=== PATIENT | male | born 1955 | race Asian ===

== ENCOUNTER 2016-10-20 23:16 | Emergency (ER) | payer BC ==
[2016-10-21] MEDS ORDERED: NS 0.9% 1000 ML* 1,000 ML IV ONE (00:14)
[2016-10-21 00:37] LABS: Hematocrit 40 % (42-52); Hemoglobin 13.1 g/dl (14.0-18.0); Mean Corpuscular HGB Conc 32 g/dl (31-36); Mean Corpuscular Hemoglobin 27 pg (27-31); Mean Corpuscular Volume 84 fL (80-94); Mean Platelet Volume 9 um3 (7.4-10.4); Red Blood Count 4.78 10^6/ul (4.0-5.4); Red Cell Distribution Width 14 % (10.5-15); White Blood Count 8.7 10^3/ul (3.5-10.8)
[2016-10-21 00:41] LABS: Urine Bilirubin Negative (Negative); Urine Glucose Negative (Negative); Urine Nitrite Negative (Negative)
[2016-10-21 00:47] LABS: BUN/Creatinine Ratio 15.8 (8-20); C Reactive Protein 1.59 mg/L (< 5.00); Calcium 9.1 mg/dL (8.6-10.3); EGFR African American 103.3 (>60); EGFR Non-African American 80.3 (>60); Potassium 3.8 mmol/L (3.5-5.0); Total Bilirubin 0.3 mg/dL (0.2-1.0)
[2016-10-21 00:48] LABS: Troponin I 0.01 ng/mL (<0.04)
--- NOTE | 2016-10-21 01:50 | ED ---
Fritz Cam Adam, scribed for Jaren Marrufo MD on 10/20/16 at 2357 . Abdominal Pain/Male - HPI Summary HPI Summary: Pt is a 61 year old male presenting with abdominal pain that set on at 20:00 tonight, about 1 hour after the pt ate dinner. The pain is diffuse in his central abdomen and it radiates up the center of his chest to his neck. It was a 5/10 but is currently a 2-3/10. Recumbent position aggravates the pain. Pt also c/o RLQ abdominal pain that seems to be separate. He denies fever, N/V/D. He had a BM today which was normal. Several months ago he had a stomach ulcer with hematemesis and bloody stool. Since then he has been asymptomatic until tonight. He states that tonight's symptoms are different from those several months ago, but he had an episode of pain similar to the current pain a few days ago. PMHx includes ulcers, GI bleeding, and HTN. - History of Current Complaint Chief Complaint: EDAbdPain Stated Complaint: ABD PAIN Time Seen by Provider: 10/20/16 23:39 Hx Obtained From: Patient Onset/Duration: Sudden Onset, Lasting Hours, Still Present Timing: Constant Severity Initially: Moderate Severity Currently: Mild Pain Intensity: 5 Pain Scale Used: 0-10 Numeric Location: Diffuse, Discrete At: RLQ, Umbilical Radiates: Yes Radiates to: Other - Up chest to neck Aggravating Factor(s): Other: - Recumbent position Alleviating Factor(s): Spontaneous Resolution - Not completely resolved but improved Associated Signs And Symptoms: Positive: Negative - Allergies/Home Medications Allergies/Adverse Reactions: Allergies Allergy/AdvReac Type Severity Reaction Status Date / Time No Known Allergies Allergy Verified 10/20/16 23:32 PMH/Surg Hx/FS Hx/Imm Hx Cardiovascular History: Reports: Hx Hypertension - Borderline Sensory History: Reports: Hx Contacts or Glasses Opthamlomology History: Reports: Hx Contacts or Glasses - Immunization History Date of Tetanus Vaccine: unk Date of Influenza Vaccine: unk Infectious Disease History: No Infectious Disease History: Denies: Traveled Outside the [place] in Last 30 Days - Family History Known Family History: Positive: None - "Both parents are alive and healthy" - Social History Occupation: Retired Lives: With Family - Alcohol Use: None Hx Substance Use: No Substance Use Type: Reports: None Hx Tobacco Use: No Smoking Status (MU): Former Smoker Review of Systems Constitutional: Negative Negative: Fever Positive: Abdominal Pain. Negative: Vomiting, Diarrhea, Nausea All Other Systems Reviewed And Are Negative: Yes Physical Exam Triage Information Reviewed: Yes Vital Signs On Initial Exam: Initial Vitals Temp Pulse Resp BP Pulse Ox 98.0 F 69 16 171/93 98 10/20/16 23:25 10/20/16 23:25 10/20/16 23:25 10/20/16 23:25 10/20/16 23:25 Vital Signs Reviewed: Yes Appearance: Positive: Well-Appearing, No Pain Distress Skin: Positive: Warm, Skin Color Reflects Adequate Perfusion, Dry Head/Face: Positive: Normal Head/Face Inspection Eyes: Positive: EOMI, JENNIFER ENT: Positive: Normal ENT inspection Neck: Positive: Supple, Nontender Respiratory/Lung Sounds: Positive: Clear to Auscultation, Breath Sounds Present Cardiovascular: Positive: RRR Abdomen Description: Positive: Nontender, Soft Bowel Sounds: Positive: Present Musculoskeletal: Positive: Normal, Strength/ROM Intact Neurological: Positive: Normal, Sensory/Motor Intact, Alert, Oriented to Person Place, Time Psychiatric: Positive: Affect/Mood Appropriate - Nika Coma Scale Coma Scale Total: 15 Diagnostics - Vital Signs Vital Signs Temp Pulse Resp BP Pulse Ox 10/20/16 23:25 98.0 F 69 16 171/93 98 - Laboratory Lab Results: Lab Results 10/20/16 10/21/16 10/21/16 Range/Units 23:55 00:00 00:00 WBC 8.7 (3.5-10.8) 10^3/ul RBC 4.78 (4.0-5.4) 10^6/ul Hgb 13.1 L (14.0-18.0) g/dl Hct 40 L (42-52) % MCV 84 (80-94) fL MCH 27 (27-31) pg MCHC 32 (31-36) g/dl RDW 14 (10.5-15) % Plt Count 239 (150-450) 10^3/ul MPV 9 (7.4-10.4) um3 Neut % (Auto) 65.6 (38-83) % Lymph % (Auto) 22.8 L (25-47) % [place] % (Auto) 7.4 (1-9) % Eos % (Auto) 3.8 (0-6) % Baso % (Auto) 0.4 (0-2) % Absolute Neuts (auto) 5.7 (1.5-7.7) 10^3/ul Absolute Lymphs (auto) 2.0 (1.0-4.8) 10^3/ul Absolute Monos (auto) 0.6 (0-0.8) 10^3/ul Absolute Eos (auto) 0.3 (0-0.6) 10^3/ul Absolute Basos (auto) 0 (0-0.2) 10^3/ul Absolute Nucleated RBC 0 10^3/ul Nucleated RBC % 0 INR (Anticoag Therapy) 0.93 (0.89-1.11) APTT 34.0 (26.0-36.3) seconds Sodium (133-145) mmol/L Potassium (3.5-5.0) mmol/L Chloride (101-111) mmol/L Carbon Dioxide (22-32) mmol/L Anion Gap (2-11) mmol/L BUN (6-24) mg/dL Creatinine (0.67-1.17) mg/dL Est GFR ( Amer) (>60) Est GFR (Non-Af Amer) (>60) BUN/Creatinine Ratio (8-20) Glucose (70-100) mg/dL Lactic Acid (0.5-2.0) mmol/L Calcium (8.6-10.3) mg/dL Total Bilirubin (0.2-1.0) mg/dL AST (13-39) U/L ALT (7-52) U/L Alkaline Phosphatase (34-104) U/L Troponin I (<0.04) ng/mL C-Reactive Protein (< 5.00) mg/L Total Protein (6.4-8.9) g/dL Albumin (3.2-5.2) g/dL Globulin (2-4) g/dL Albumin/Globulin Ratio (1-3) Lipase (11.0-82.0) U/L Urine Color Yellow Urine Appearance Clear Urine pH 5.0 (5-9) Ur Specific [place] 1.019 (1.010-1.030) Urine Protein Negative (Negative) Urine Ketones Negative (Negative) Urine Blood Negative (Negative) Urine Nitrate Negative (Negative) Urine Bilirubin Negative (Negative) Urine Urobilinogen Negative (Negative) Ur Leukocyte Esterase Negative (Negative) Urine Glucose Negative (Negative) Urine Ascorbic Acid * H (Negative) 10/21/16 10/21/16 Range/Units 00:00 00:00 WBC (3.5-10.8) 10^3/ul RBC (4.0-5.4) 10^6/ul Hgb (14.0-18.0) g/dl Hct (42-52) % MCV (80-94) fL MCH (27-31) pg MCHC (31-36) g/dl RDW (10.5-15) % Plt Count (150-450) 10^3/ul MPV (7.4-10.4) um3 Neut % (Auto) (38-83) % Lymph % (Auto) (25-47) % [place] % (Auto) (1-9) % Eos % (Auto) (0-6) % Baso % (Auto) (0-2) % Absolute Neuts (auto) (1.5-7.7) 10^3/ul Absolute Lymphs (auto) (1.0-4.8) 10^3/ul Absolute Monos (auto) (0-0.8) 10^3/ul Absolute Eos (auto) (0-0.6) 10^3/ul Absolute Basos (auto) (0-0.2) 10^3/ul Absolute Nucleated RBC 10^3/ul Nucleated RBC % INR (Anticoag Therapy) (0.89-1.11) APTT (26.0-36.3) seconds Sodium 138 (133-145) mmol/L Potassium 3.8 (3.5-5.0) mmol/L Chloride 106 (101-111) mmol/L Carbon Dioxide 28 (22-32) mmol/L Anion Gap 4 (2-11) mmol/L BUN 15 (6-24) mg/dL Creatinine 0.95 (0.67-1.17) mg/dL Est GFR ( Amer) 103.3 (>60) Est GFR (Non-Af Amer) 80.3 (>60) BUN/Creatinine Ratio 15.8 (8-20) Glucose 114 H (70-100) mg/dL Lactic Acid 1.0 (0.5-2.0) mmol/L Calcium 9.1 (8.6-10.3) mg/dL Total Bilirubin 0.30 (0.2-1.0) mg/dL AST 23 (13-39) U/L ALT 21 (7-52) U/L Alkaline Phosphatase 40 (34-104) U/L Troponin I 0.01 (<0.04) ng/mL C-Reactive Protein 1.59 (< 5.00) mg/L Total Protein 7.0 (6.4-8.9) g/dL Albumin 4.0 (3.2-5.2) g/dL Globulin 3.0 (2-4) g/dL Albumin/Globulin Ratio 1.3 (1-3) Lipase 41 (11.0-82.0) U/L Urine Color Urine Appearance Urine pH (5-9) Ur Specific [place] (1.010-1.030) Urine Protein (Negative) Urine Ketones (Negative) Urine Blood (Negative) Urine Nitrate (Negative) Urine Bilirubin (Negative) Urine Urobilinogen (Negative) Ur Leukocyte Esterase (Negative) Urine Glucose (Negative) Urine Ascorbic Acid (Negative) Result Diagrams: 10/21/16 00:00 10/21/16 00:00 Lab Statement: Any lab studies that have been ordered have been reviewed, and results considered in the medical decision making process. Abdominal Pain Fem Course/Dx - Course Assessment/Plan: PAIN DISSIPATED IN ED. PATIENT DECLINED CT. WILL CALL GI IN AM FOR FOLLOW UP. DISCHARGE HOME STABLE. - Diagnoses Provider Diagnoses: Abdominal pain Discharge - Discharge Plan Condition: Stable Disposition: HOME Patient Education Materials: Abdominal Pain (ED) Referrals: Cole Arteaga MD [Primary Care Provider] - Additional Instructions: FOLLOW UP WITH YOUR DOCTOR. CALL GASTROENTEROLOGY TODAY FOR FOLLOW UP. RETURN TO THE EMERGENCY DEPARTMENT FOR ANY WORSENING OF YOUR CONDITION OR QUESTIONS OR CONCERNS. The documentation as recorded by the Fritz lópez Adam accurately reflects the service I personally performed and the decisions made by me, Jaren Marrufo MD.
--- NOTE | 2016-10-21 02:00 | ED ---
Progress - Progress Note Progress Note: PATIENT DENIES ANY CHEST PAIN - EKG/XRAY/CT EKG: NSR, ST elevation - ANTERIOR, unchanged from - 07/31/16 Comments: NO ECTOPY Course/Dx - Diagnoses Provider Diagnoses: Abdominal pain
[2016-10-21 02:24] VITALS: BP 150/87
== END 2016-10-21 02:20 | disposition home or self-care (01) ==
LOC: ED 23:16
DX: R10.31 Right lower quadrant pain (principal)
CPT/HCPCS: 36415; 80053; 81003; 83605; 83690; 84484; 85025; 85610; 85730; 86140; 93005; 99283

== ENCOUNTER 2018-05-22 04:55 | Observation (INO) | payer BC ==
[2018-05-22] MEDS ORDERED: Ondansetron INJ* 2 MG/ML VIAL IV ONE (05:22)
--- NOTE | 2018-05-22 05:28 | ED ---
Syncope/Near Syncope - HPI Summary HPI Summary: 62 year old M BIB EMS to [facility] complains of lacerations above his left eyebrow s /p syncope to bathroom floor one hour ago. Symptoms aggravated by nothing. Symptoms alleviated by nothing. Patient reports vomiting and nausea. He states that he woke up to use the bathroom because he felt the frequency to move his bowels, sat on toilet feeling dizzy, then lost consciousness. He reports that his last bowel movement was yesterday at 10:00. - History Of Current Complaint Chief Complaint: EDSyncope Time Seen by Provider: 05/22/18 04:59 Hx Obtained From: Patient Onset/Duration: Sudden Onset, Resolved Context: Unwitnessed Aggravating Factor(s): Nothing Alleviating Factor(s): Nothing Associated Signs And Symptoms: Other - frequency to move his bowels, vomting, nausea - Allergies/Home Medications Allergies/Adverse Reactions: Allergies Allergy/AdvReac Type Severity Reaction Status Date / Time No Known Allergies Allergy Verified 05/22/18 05:10 Home Medications: Home Medications Amlodipine Besylate [Norvasc 5 mg tab] 5 mg PO DAILY 05/22/18 [History Confirmed 05/22/18] PMH/Surg Hx/FS Hx/Imm Hx Previously Healthy: No Cardiovascular History: Reports: Hx Hypertension - Borderline GI History: Reports: Hx Ulcer Sensory History: Reports: Hx Contacts or Glasses Opthamlomology History: Reports: Hx Contacts or Glasses - Surgical History Surgery Procedure, Year, and Place: EGD - Immunization History Date of Tetanus Vaccine: unk Date of Influenza Vaccine: none Infectious Disease History: No Infectious Disease History: Denies: Traveled Outside the [place] in Last 30 Days - Family History Known Family History: Positive: Other - "Both parents are alive and healthy" - Social History Alcohol Use: None Hx Substance Use: No Substance Use Type: Reports: None Hx Tobacco Use: No Smoking Status (MU): Never Smoked Tobacco Review of Systems Positive: Vomiting, Nausea, Other - frequency to move his bowels Positive: Other - lacerations above his left eyebrow Positive: Syncope All Other Systems Reviewed And Are Negative: Yes Physical Exam - Summary Physical Exam Summary: VITAL SIGNS: Reviewed. GENERAL: Patient is a well-developed and nourished female who is lying comfortable in the stretcher. Patient is not in any acute respiratory distress. HEAD AND FACE: No signs of trauma. No ecchymosis, hematomas or skull depressions. No sinus tenderness. EYES: PERRLA, EOMI x 2, No injected conjunctiva, no nystagmus. EARS: Hearing grossly intact. Ear canals and tympanic membranes are within normal limits. MOUTH: Oropharynx within normal limits. NECK: Supple, trachea is midline, no adenopathy, no JVD, no carotid bruit, no c- spine tenderness, neck with full ROM. CHEST: Symmetric, no tenderness at palpation LUNGS: Clear to auscultation bilaterally. No wheezing or crackles. CVS: Regular rate and rhythm, S1 and S2 present, no murmurs or gallops appreciated. ABDOMEN: Soft, non-tender. No signs of distention. No rebound no guarding, and no masses palpated. Bowel sounds are normal. EXTREMITIES: FROM in all major joints, no edema, no cyanosis or clubbing. NEURO: Alert and oriented x 3. No acute neurological deficits. Speech is normal and follows commands. SKIN: Patient has two 1.5-cm lacerations over his left forehead above the eyebrow Triage Information Reviewed: Yes Vital Signs On Initial Exam: Initial Vitals Temp Pulse Resp BP Pulse Ox 97.5 F 75 16 164/99 97 05/22/18 05:08 05/22/18 05:08 05/22/18 05:08 05/22/18 05:08 05/22/18 05:08 Vital Signs Reviewed: Yes Procedures - Laceration/Wound Repair 1 Location: head Anesthesia: 2.0% Closure: Single Layer - 6 O Number of Sutures: 7 Diagnostics - Vital Signs Vital Signs Temp Pulse Resp BP Pulse Ox 05/22/18 05:08 97.5 F 75 16 164/99 97 - Laboratory Result Diagrams: 05/22/18 06:13 05/22/18 06:13 Lab Statement: Any lab studies that have been ordered have been reviewed, and results considered in the medical decision making process. - EKG 0528 Cardiac Rate: NL - 64 BPM EKG Rhythm: Sinus Rhythm EKG Interpretation: Q wave in lead III Course/Dx Course Of Treatment: 62 year old M BIB EMS to [facility] complains of lacerations above his left eyebrow s/p syncope to bathroom floor one hour ago. During laceration repair, patient's heart rate went down to mid 30s a few times. Patient will be signed out Dr. Hurst, pending labs and dispo. - Diagnoses Provider Diagnoses: Syncope, Laceration - Physician Notifications Discussed Care of Patient With: Britney Moreno Time Discussed With Above Provider: 07:04 Instructed by Provider To: Admit As Inpatient Discharge - Sign-Out/Discharge Documenting (check all that apply): Patient Departure - admitted - Discharge Plan Condition: Fair Disposition: ADMITTED TO [facility] Referrals: Cole Arteaga MD [Primary Care Provider] - - Attestation Statements Document Initiated by Scribe: Yes Documenting Scribe: Nadja Hidalgo Provider For Whom Scribe is Documenting (Include Credential): Savannah Watson MD Scribe Attestation: Nadja Cam, scribed for Savannah Watson MD on 05/22/18 at 0737.
[2018-05-22] MEDS ORDERED: Atropine SYRINGE* 0.1 MG/ML 10 ML SYRINGE (1 MG) ONE (05:58)
[2018-05-22] MEDS ORDERED: Atropine SYRINGE* 0.1 MG/ML 10 ML SYRINGE (1 MG) IV PUSH ONE ×2 (06:01→06:04)
[2018-05-22] MEDS ORDERED: Tetan/Diph/Pertus SYR(Tdap)* 0.5 ML SYR(BOOSTRIX) use SYR IM ONE (06:04)
[2018-05-22 06:30] LABS: ABS Basophils 0 10^3/ul (0-0.2); ABS Eosinophils 0.2 10^3/ul (0-0.6); ABS Lymphocytes 1.4 10^3/ul (1.0-4.8); ABS Monocytes 0.7 10^3/ul (0-0.8); ABS Neutrophils 9.5 10^3/ul (1.5-7.7); ABS Nucleated RBC 0 10^3/ul; Eosinophil % 1.7 % (0-6); Hematocrit 47 % (42-52); Hemoglobin 15.5 g/dl (14.0-18.0); Lymphocyte % 11.9 % (25-47); Mean Corpuscular HGB Conc 33 g/dl (31-36); Mean Corpuscular Hemoglobin 30 pg (27-31); Mean Corpuscular Volume 89 fL (80-94); Mean Platelet Volume 8.2 um3 (7.4-10.4); Nucleated Red Blood Cells % 0; Platelet Count 268 10^3/ul (150-450); Red Blood Count 5.23 10^6/ul (4.00-5.40); Red Cell Distribution Width 14 % (10.5-15); White Blood Count 11.7 10^3/ul (3.5-10.8)
[2018-05-22 06:40] LABS: INR 0.9 (0.77-1.02)
[2018-05-22 06:53] LABS: EGFR Non-African American 83.1 (>60)
[2018-05-22] MEDS ORDERED: Al Hydrox/Mg Hydrox/Simet LIQ* 30 ML UDC PO PRN (07:40)
[2018-05-22] MEDS ORDERED: Ondansetron INJ* 2 MG/ML VIAL IV PRN (07:40)
[2018-05-22] MEDS ORDERED: Acetaminophen TAB* 325 MG PO PRN (07:40)
--- NOTE | 2018-05-22 08:19 | RAD ---
Indication: Syncope, head injury. CT of the brain performed without IV contrast. Ventricular structures are midline. No midline shift is noted. The extra-axial spaces are unremarkable. There is no evidence of intracranial mass or hemorrhage. No other high or low density lesions are identified. Mastoid air cells and Paranasal sinuses are otherwise unremarkable. IMPRESSION: There is no intracranial mass or hemorrhage noted.
[2018-05-22] MEDS ORDERED: Iohexol 350* (CONTRAST) 500 ML MDV IV ONE (11:02)
--- NOTE | 2018-05-22 11:02 | HP ---
CC: Cole Arteaga MD * HISTORY AND PHYSICAL: DATE OF ADMISSION: 05/22/18 TIME OF EVALUATION: 0700. PRIMARY CARE PHYSICIAN: Cole Arteaga MD CHIEF COMPLAINT: Syncope. HISTORY OF PRESENT ILLNESS: This is a 62-year-old male with past medical history of hypertension, who presents to the emergency room after having the syncopal episode. The patient states he woke up around midnight feeling like he had abdominal pressure, having the urge to have a bowel movement. He tried to control, but could not, went to the bathroom. While he was sitting there, he felt very lightheaded and dizzy. He never ended up having a bowel movement. He tried to get back to bed and had a syncopal episode, collapsing on the floor, injuring his left eyebrow, head region requiring sutures. His then helped him to get back into bed. He still had an urge to have the bowel movement, was still dizzy, could not sit up, and at that time they decided to call EMS. He then preceded to have an episode of nausea and vomiting, felt better, then shortly thereafter felt dizzy again, vomited again and felt better and the urge to have a bowel movement dissipated. He no longer has any abdominal pain, no longer has any dizziness. No nausea or vomiting. He denies any changes in his appetite. No medication changes. No focal weakness. No numbness or tingling. No dizziness. No vision changes. No headache. No altered mental status. Denies any chest pain or shortness of breath. No recent URI illness or fever. No changes in his weight. Otherwise, review of systems is negative. In the emergency room, the patient had labs and EKG. He was given Zofran, atropine when his heart rate went down to 35 while he was getting his eyebrow sutured. He was called by the hospitalist service for further evaluation. PAST MEDICAL HISTORY: 1. Hypertension. 2. History of peptic ulcer disease with a GI bleed. MEDICATIONS: Amlodipine 5 mg daily in the morning ALLERGIES: No known drug allergies. FAMILY HISTORY: Parents are alive, living in [facility]. Both parents are in their 80s. SOCIAL HISTORY: The patient lives with , who is his healthcare proxy. He has also 2 children. Rare alcohol use. No tobacco use. He is a retired physicist. Code status, full code. REVIEW OF SYSTEMS: A 14-point review of systems as mentioned in HPI, otherwise negative. PHYSICAL EXAMINATION GENERAL: No acute distress, resting comfortably. VITAL SIGNS: Temp 97.5, pulse rate is 88, respiratory rate is 15, oxygen saturation 97% on room air, blood pressure 139/80. HEENT: Head is normocephalic. The patient does have a laceration in his left eyebrow with sutures placed. No oozing or active bleeding. He does have some subtle edema and ecchymosis. Pupils are equal and reactive. Oropharynx: Mucous membranes are moist. No erythema or exudate. NECK: Supple, no adenopathy. RESPIRATORY: Clear to auscultation. No wheezes, rhonchi, or rales. CARDIAC: Regular rate and rhythm. Soft systolic murmur heard throughout. No carotid bruits. ABDOMEN: Positive bowel sounds. Soft, nontender, nondistended. EXTREMITIES: No clubbing, cyanosis, or edema. +2 DPs. NEUROLOGIC: Alert and oriented x3. No gross focal neurologic deficits. Negative pronator drift. Cranial nerves II through XII intact. Normal heel-to- rodriguez test. DIAGNOSTIC STUDIES/LAB DATA: White count 11.7, hemoglobin 15.5, hematocrit 47 , platelets 268. INR is 0.9. Sodium 142, potassium 4, chloride 107, bicarb 28 , BUN 16, creatinine 0.92, glucose 118. Troponin 0.01. TSH 1.65. Radiographic Data: EKG shows normal sinus rhythm with ST changes suggestive of early repolarization unchanged from prior EKG, some subtle changes in the lateral leads. ASSESSMENT: This is a 62-year-old male with a past medical history of hypertension who had a syncopal episode in the setting of nausea, vomiting, and found to be bradycardic in the emergency room. 1. Syncope. Assessment: This could be vasovagal event. His orthostatic vital signs do show that he has orthostatic hypotension. There is a concern that this may be more than vasovagal with his recurrent dizzy episodes resolving with nausea, vomiting. This could be transient ischemic attack, posterior fossa infarct. These symptoms have since resolved. The other possibility is cardiac etiology with his bradycardia in the emergency room going down to the 30s that he was having cardiac issues related to the syncope. He does have some subtle EKG changes as well. Could be start of gastroenteritis in setting of N/V. Plan: We will admit him to telemetry for observation. We will obtain a head CT and then a CTA of the head and neck. We will trend his troponin, check a lipid panel in the morning, repeat his labs, and obtain neuro checks. We will give him a liter of fluid as well for now. We will consider further workup depending on results of his studies. I am going to hold his amlodipine in the setting of the bradycardia in the emergency room but probably another vasovagal event as it was happening while he was getting his eyebrow sutured. 2. FEN: We will place him on a regular diet. 3. DVT prophylaxes: The patient scores moderate risk. We will place him on heparin subcu t.i.d. 4. Laceration. The patient with sutures placed to his left eyebrow and will have these stitches removed in 3 to 5 days. 5. Code status: Full code. PATIENT TIME: Greater than 50 minutes was spent doing the history and physical , more than half of the time spent in direct patient contact. [id number]/CPS #: [id number] VONNIE
--- NOTE | 2018-05-22 11:37 | RAD ---
Indication: Syncope. Contrast: Administered 80.3 ml of OMNIPAQUE 350 mg/ml CTA of the neck and head was performed after IV contrast administration. Coronal and sagittal reconstructed images were obtained. The origins of the great vessels are unremarkable. No definite atherosclerosis is noted. The innominate artery and left common carotid artery as well as the right common carotid artery demonstrates no intimal wall thickening. No plaque is noted. The internal carotid arteries bilaterally demonstrates no evidence of atherosclerosis. No stenosis is noted. No evidence of carotid artery dissection is noted. The anterior and middle cerebral arteries are unremarkable. The intracranial carotid arteries are unremarkable. No evidence of branch occlusion is identified. The vertebral arteries demonstrate no evidence of atherosclerosis. No stenosis is identified. No vertebral artery dissection is noted. Basilar artery and posterior cerebral arteries are unremarkable. No aneurysmal dilatation is noted. Parotid glands and submandibular glands are unremarkable. No significant adenopathy is noted. The lung apices are grossly unremarkable. IMPRESSION: No evidence of carotid artery stenosis. No evidence of carotid artery dissection. Intracranial circulation demonstrates no evidence of branch occlusion or aneurysmal dilatation.
[2018-05-22] MEDS: Heparin VIAL(*) 5000 UNITS/ML VIAL (FIVE THOUSAND) SUBCUT SCH ×2 (15:22→21:34)
[2018-05-23] MEDS: Heparin VIAL(*) 5000 UNITS/ML VIAL (FIVE THOUSAND) SUBCUT SCH ×2 (06:04→13:22)
[2018-05-23 06:43] LABS: ABS Basophils 0 10^3/ul (0-0.2); ABS Eosinophils 0.1 10^3/ul (0-0.6); ABS Lymphocytes 0.5 10^3/ul (1.0-4.8); ABS Monocytes 0.3 10^3/ul (0-0.8); ABS Neutrophils 7.2 10^3/ul (1.5-7.7); ABS Nucleated RBC 0 10^3/ul; Eosinophil % 0.8 % (0-6); Hematocrit 43 % (42-52); Hemoglobin 14.4 g/dl (14.0-18.0); Lymphocyte % 5.8 % (25-47); Mean Corpuscular HGB Conc 34 g/dl (31-36); Mean Corpuscular Hemoglobin 30 pg (27-31); Mean Corpuscular Volume 89 fL (80-94); Nucleated Red Blood Cells % 0.4; Platelet Count 211 10^3/ul (150-450); Red Blood Count 4.78 10^6/ul (4.00-5.40); Red Cell Distribution Width 14 % (10.5-15); White Blood Count 8.1 10^3/ul (3.5-10.8)
[2018-05-23 07:03] LABS: EGFR Non-African American 75.5 (>60)
[2018-05-23 12:12] VITALS: BP 156/84
--- NOTE | 2018-05-23 14:50 | ECHO ---
Patient: MARCELO GAMBINO [facility] Rec#: [id number] : 1955 Date: 05/23/2018 Age: 62y Height: 172.72 cm / 68.0 in Weight: 73.03 kg / 161.0 lbs Sex: M BSA: 1.86 Room#: [facility] Admit Date#: 05/22/2018 Type: Inpatient Referring: Britney Moreno Reading: Abhay Parrish MD Duty Manager: Tila Norwood JAGRUTI CC: Cole Arteaga MD Transthoracic Echocardiogram Indication: Syncope BP: 153/81 HR: 98 Rhythm: NSR Findings History: HTN,soft systolic murmur,syncope. Technical Comments: The study quality is good. Completed at 1225. Left Ventricle: The left ventricular chamber size is normal. Septal wall hypertrophy is observed. Global left ventricular wall motion and contractility are within normal limits. There is normal left ventricular systolic function. The estimated ejection fraction is 60-65%. Normal left ventricular diastolic filling is observed. Left Atrium: The left atrial chamber size is normal. Right Ventricle: The right ventricular cavity size is normal. The right ventricular global systolic function is normal. Right Atrium: The right atrial cavity size is normal. Aortic Valve: The aortic valve is trileaflet. There is no evidence of aortic valve thickening. There is no evidence of aortic regurgitation. There is no evidence of aortic stenosis. Mitral Valve: The mitral valve leaflets are mildly thickened. There is a trace of mitral regurgitation. There is no evidence of mitral stenosis. Tricuspid Valve: The tricuspid valve leaflets are normal. There is trace tricuspid regurgitation. Unable to estimate the right ventricular systolic pressure. There is no tricuspid stenosis. Pulmonic Valve: The pulmonic valve appears normal. There is trace to mild pulmonic regurgitation. There is no pulmonic stenosis. Pericardium: The pericardium appears normal. Aorta: There is no dilatation of the ascending aorta. There is no dilatation of the aortic arch. There is no dilation of the aortic root. Pulmonary Artery: The main pulmonary artery appears normal. Venous: The venous system is not well visualized. Summary: There was not any prior study for comparison. Conclusions Global left ventricular wall motion and contractility are within normal limits. There is normal left ventricular systolic function. The estimated ejection fraction is 60-65%. The right ventricular global systolic function is normal. There is no evidence of aortic stenosis. There is a trace of mitral regurgitation. There is trace tricuspid regurgitation. Unable to estimate the right ventricular systolic pressure. The pericardium appears normal. Measurements Name Value Normal Range RVIDd (AP) 2D 3.3 cm (0.9 - 2.6) RVDdMajor (2D) 4.4 cm (2.2 - 4.4) RAd ISD 4CH 4.9 cm (3.4 - 4.9) RA (A4C)W 2.9 cm (2.9 - 4.6) IVSd (2D) 1.1 cm (0.6 - 1) LVPWd (2D) 1 cm (0.6 - 1) LVIDd (2D) 4.6 cm (3.6 - 5.4) LVIDs (2D) 2.2 cm - LV FS (2D) 52 % (25 - 45) Aortic Annulus 2 cm (1.4 - 2.6) Ao root diameter (2D) 3.5 cm (2.1 - 3.5) Ascending Ao 3.2 cm (2.1 - 3.4) Aortic arch 2.7 cm (1.8 - 3.4) Descending Ao 0.7 cm - LA dimension (AP) 2D 3.8 cm (2.3 - 3.8) LAd ISD 4CH 4.9 cm (2.9 - 5.3) LA ISD 4CH W 4.5 cm (2.5 - 4.5) Name Value Normal Range LA ESV SP 4CH (A/L) 51 ml - LA ESV SP 2CH (A/L) 75 ml - LA ESV BP (A/L) 64 ml - LA ESV BP (A/L) index 34.1 ml/m2 - LA ESV SP 4CH (MOD) 47 ml - LA ESV SP 2CH (MOD) 67 ml - Name Value Normal Range MV E-wave Vmax 1 m/sec - MV deceleration time 113 msec - MV A-wave Vmax 0.9 m/sec - MV E:A ratio 1.16 ratio - LV septal e' Vmax 0.07 m/sec - LV lateral e' Vmax 0.09 m/sec - LV E:e' septal ratio 14.28 ratio - LV E:e' lateral ratio 11.11 ratio - Name Value Normal Range AV Vmax 1.6 m/sec - AV VTI 29.4 cm - AV peak gradient 10.68 mmHg - AV mean gradient 5.42 mmHg - LVOT Vmax 1.2 m/sec - LVOT VTI 24.5 cm - LVOT peak gradient 6.16 mmHg - LVOT mean gradient 3.15 mmHg - Name Value Normal Range TR Vmax 2.1 m/sec - TR peak gradient 18 mmHg - Name Value Normal Range PV Vmax 1.2 m/sec - PV peak gradient 5.36 mmHg -
--- NOTE | 2018-05-24 00:10 | DS ---
CC: Dr. Arteaga; [facility] * DISCHARGE SUMMARY: DATE OF ADMISSION: 05/22/18 DATE OF DISCHARGE: 05/23/18 PRIMARY CARE PROVIDER: Dr. Arteaga. DISCHARGE DIAGNOSES: 1. Syncope with subsequent laceration of the left eyebrow, likely vasovagal. 2. Orthostatic hypotension. 3. Nausea and vomiting that resolved. 4. Dehydration. SECONDARY DIAGNOSES: 1. History of syncopal episodes in the past when the patient has episodes of nausea or abdominal distension. 2. History of hypertension. 3. History of peptic ulcer disease with GI bleed with being Helicobacter positives in the past. MEDICATIONS AT DISCHARGE: Include amlodipine 5 mg daily. LABORATORY DATA AND STUDIES PERFORMED DURING THE HOSPITAL STAY: Include: On , white blood cell count of 8.1, hemoglobin of 14.4, hematocrit 43 and platelet 211. TSH was 1.65 at admission. Cholesterol profile showed triglycerides of 68, cholesterol total of 142, LDL of 72, and HDL 56. Sodium 140, potassium 3.5, chloride 106, carbon dioxide 26, BUN 14, creatinine 1.0. CT angiogram of the head and neck obtained on 05/22/18, impression: "Intracranial circulation demonstrates no evidence of vessel occlusion or aneurysmal dilatation. There was also no evidence of carotid artery stenosis." Transthoracic echocardiogram obtained on 05/23/18, showed EF of 60% to 65% with global left ventricle wall motion and contractility within normal limits. HOSPITALIZATION COURSE: Mr. Dueñas is a 62-year-old male with history of syncopal episodes in the past, one in 2011 and two in 2017, all of those were related to episodes of abdominal fullness and feeling like he needs to have an bowel movement and later on nausea and vomiting. His most recent syncopal episode occurred early in the morning on 05/22/18. The patient stated that he felt abdominal fullness and he felt as he needed to go to the bathroom. He sat up on his bed and when he was about to stand up and go to the bathroom, he passed out hitting his head and lacerating his left eyebrow. That needed to be sutured in the emergency department. When he came into the emergency department , he was noted to have orthostatic hypotension. Also, when he was being sutured had episodes of bradycardia and atropine needed to be used twice. His initial workup including CT of the brain, was remarkable. Due to the bradycardia and syncope, he was placed on overnight observation on telemetry monitoring bed. No further episodes of bradycardia were noted since admission. The patient vomited in the ER once. He tolerated his regular diet after admission without any problems. He had no bradycardia noted on telemetry monitoring bed for the next 24 hours. His troponins continued to be negative and raised from 0.01 to 0.03. Transthoracic echocardiogram showed normal wall motion abnormality and the patient never complained of chest pain. The patient also noted that he had few similar episodes 1 in 2011 and 2 in 2017. At this point, it appears to be a vagal episode and related to nausea and vomiting or some kind of gastric upset that occurs before the patient turns bradycardiac. Nevertheless, due to recurrent episodes, it is recommended for the patient to have an evaluation with cat cracker operator for consideration of implantable monitor placement. The patient also had orthostatic hypotension on presentation and was placed on intravenous hydration that resolved that problem. At discharge, I spoke with [facility] office and the staff there is going to be working on getting the patient in to be evaluated for implantable monitor. Also recommended for the patient to follow up with Dr. Hayes approximately 4 to 7 days to discuss possibility of GI followup as the patient did have history of GI bleed in 2016 and gastric ulcers in the past and now he has occasional problems with nausea and vomiting. PHYSICAL EXAM AT THE TIME OF DISCHARGE: Blood pressure of 156/84, heart rate of 97 and regular, respiratory rate of 20, oxygen saturation 95% on room air, temperature 98.5. General: The patient is a pleasant 62-year-old male who is in no acute distress. Alert, awake, and oriented x3. HEENT: Head with laceration on the left eyebrow that was sutured of approximately 4 cm in length. Eyes: Extraocular muscles intact. Pupils are equal and reactive to light and accommodation. Oropharynx is clear. Mucosa moist. Neck: Supple. No JVD. No bruits bilaterally. Cardiovascular: Regular rate and rhythm. No murmur. Respiratory: Clear to auscultation bilaterally. Abdomen: Soft, nontender. Bowel sounds present in all 4 quadrants. Extremities: There is no edema. Pulses +2 bilaterally. No clubbing or cyanosis. On evaluation of the skin, the patient has sutured laceration of his left eyebrow as mentioned above. At discharge, the patient is recommended to follow up with Dr. Arteaga and for removal of sutures in approximately 7 to 10 days either at his primary care provider's office or [facility] or the emergency department. Please note that this is a short summary of the patient's hospitalization. Please refer to further medical records for details. [id number]/[facility] #: [id number] MTDD
== END 2018-05-23 16:00 | disposition home or self-care (01) ==
LOC: ED 04:55 → MEDTELE 08:31
PROVIDERS: ADMIT Pediatrics; ATTEND Internal Medicine
DX: R55 Syncope and collapse (principal); S01.112A Laceration without foreign body of left eyelid and periocular area, initial encounter; R11.2 Nausea with vomiting, unspecified; W19.XXXA Unspecified fall, initial encounter; Y92.9 Unspecified place or not applicable; I95.1 Orthostatic hypotension; E86.0 Dehydration; Z86.79 Personal history of other diseases of the circulatory system; Z87.11 Personal history of peptic ulcer disease
CPT/HCPCS: 36415; 70450; 70496; 70498; 80048; 80053; 80061; 83735; 84443; 84484; 85025; 85610; 85730; 90715; 93005; 93306; 96374; 99284; G0378; J0461; J1644; J2405; Q9967